=== PATIENT | female | born 1985 | race Caucasian/White ===

== ENCOUNTER 2018-12-02 08:00 | Outpatient (CLI) | payer MEDICAID ==
[2018-12-02 20:19] LABS: BILIRUBIN,URINE NEGATIVE (NEGATIVE); GLUCOSE, URINE (UA) NEGATIVE (NEGATIVE); KETONES,URINE (UA) NEGATIVE (NEGATIVE); LEUKOCYTE ESTERASE, URINE NEGATIVE (NEGATIVE); NITRITE,URINE POSITIVE (NEGATIVE); OCCULT BLOOD,URINE NEGATIVE (NEGATIVE); PROTEIN,URINE NEGATIVE (NEGATIVE); UROBILINOGEN,URINE 1 (NORMAL) E.U./dL (NORMAL)
[2018-12-02 20:24] LABS: CLARITY,URINE CLOUDY (CLEAR)
[2018-12-02 20:25] LABS: BACTERIA,URINE Many /HPF (None Seen); RBC,URINE 0-5 /HPF (0-5); SQUAMOUS EPITHELIAL CELL,UR RARE Squamous (<= Few)
== END 2018-12-02 23:59 ==
LOC: LAB.R 08:00
PROVIDERS: ATTEND Physician Assistant Medical
DX: R82.998 Other abnormal findings in urine (principal)
CPT/HCPCS: 81001; 87086; 87181

== ENCOUNTER 2019-08-31 09:00 | Outpatient (CLI) | payer SELFPAY ==
[2019-08-31 19:05] LABS: CANDIDA GROUP DNA NEGATIVE (NEGATIVE); CANDIDA KRUSEI DNA NEGATIVE (NEGATIVE); TRICHOMONAS VAGINALIS DNA NEGATIVE (NEGATIVE)
== END 2019-08-31 23:59 | disposition home or self-care (01) ==
LOC: LAB.R 09:00
PROVIDERS: ATTEND Nurse Practitioner Obstetrics & Gynecology
DX: N89.8 Other specified noninflammatory disorders of vagina (principal)
CPT/HCPCS: 87077; 87086; 87181; 87661; 87801

== ENCOUNTER 2021-10-21 18:58 | Emergency (ER) | payer MEDICAID ==
[2021-10-21 19:08] VITALS: BP 132/73
[2021-10-21] MEDS ORDERED: AMOXICILLIN 250 MG CAPSULE PO STA (19:13)
--- NOTE | 2021-10-21 19:15 | ED Physician Documentation ---
History of Present Illness - Stated complaint Stated Complaint: LT TOOTH PX - Chief complaint Chief Complaint: Heent - History obtained from History obtained from: Patient - Additonal information Additional information: 35-year-old woman with history of drug abuse and tobacco abuse is about 6 weeks and presents with dental pain that has been going on for about 3 to 4 days. Its been about A couple of years since she has seen her dentist. There is no facial swelling or fevers. A filling there fell out. 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 - Present Medications Home Medications: Ambulatory Orders Medication Instructions Recorded Confirmed Clindamycin [Cleocin] 300 mg PO Q6H 10 Days capsule 07/11/15 Oxycodone HCl/Acetaminophen 1 - 2 tab PO Q4H PRN #15 tablet 07/11/15 [Percocet 5-325 mg Tablet] Amoxicillin 500 mg PO TID #30 cap 10/21/21 - Allergies Allergies/Adverse Reactions: Allergies Allergy/AdvReac Type Severity Reaction Status Date / Time No Known Drug Allergies Allergy Verified 10/21/21 19:06 - Social History Does the pt smoke?: Yes Smoking Status: Current every day smoker Does the pt drink ETOH?: No Does the pt have substance abuse?: No - Immunizations Immunizations are current?: Yes PD ED PE NORMAL - Vitals Vital signs reviewed: Yes - General General: Alert and oriented X 3, No acute distress - HEENT HEENT: Other (She is missing many teeth, the culprit tooth today is a left mandibular canine that is carious to the gumline. No swelling, sublingual edema, or trismus.) - Neck Neck: Supple, no meningeal sign, No bony TTP - Neuro Neuro: Alert and oriented X 3, Normal speech Results - Vitals Vitals: Vital Signs - 24 hr 10/21/21 19:01 Temperature 36.3 C L Heart Rate 99 Respiratory 12 Rate Blood Pressure 132/73 H O2 Saturation 100 PD MEDICAL DECISION MAKING - ED course ED course: She declines prescription pain medication. Advised her that Tylenol was safer than ibuprofen in . Departure - Departure Disposition: 01 Home, Self Care Clinical Impression: Pain due to dental caries Condition: Good Record reviewed to determine appropriate education?: Yes Instructions: ED Tooth Pain Prescriptions: Amoxicillin 500 mg PO TID #30 cap Comments: Prescription sent electronically to [facility] in [place]. Return if you worsen It is very important that you follow-up with a dentist. When it comes to dental problems like yours, the emergency department can only offer a short-term solution to your long-term problem. A couple of low cost options for dental care include: [facility] in [place], calls [phone] for an appointment Or [facility] in [place], call [phone] for an appointment.
== END 2021-10-21 19:22 | disposition home or self-care (01) ==
LOC: ED 18:58
DX: O99.891 Other specified diseases and conditions complicating pregnancy (principal); K02.9 Dental caries, unspecified; O99.331 Smoking (tobacco) complicating pregnancy, first trimester; Z3A.01 Less than 8 weeks gestation of pregnancy
CPT/HCPCS: 99281; 99283; A9270

== ENCOUNTER 2021-12-21 22:51 | Emergency (ER) | payer MEDICAID ==
[2021-12-21 23:20] LABS: BASOPHILS % (AUTO) 0.2 %; EOSINOPHILS # (AUTO) 0.2 10^3/uL (0.0-0.7); EOSINOPHILS % (AUTO) 2.9 %; HCT - HEMATOCRIT 37.3 % (37.0-47.0); HGB - HEMOGLOBIN 12.4 g/dL (12.0-16.0); LYMPHOCYTES # (AUTO) 1.6 10^3/uL (1.5-3.5); LYMPHOCYTES % (AUTO) 27.7 %; MEAN CORPUSCULAR HEMOGLOBIN 28.6 pg (27.0-31.0); MEAN CORPUSCULAR HGB CONC 33.2 g/dL (32.0-36.0); MEAN CORPUSCULAR VOLUME 85.9 fL (81.0-99.0); MEAN PLATELET VOLUME 9.9 fL (7.9-10.8); MONOCYTES # (AUTO) 0.5 10^3/uL (0.0-1.0); MONOCYTES % (AUTO) 8.2 %; NEUTROPHILS # (AUTO) 3.6 10^3/uL (1.5-6.6); NEUTROPHILS % (AUTO) 60.8 %; PLT - PLATELET COUNT 234 10^3/uL (130-450); RED BLOOD COUNT 4.34 10^6/uL (4.20-5.40); RED CELL DISTRIBUTION WIDTH 13.7 % (12.0-15.0); WHITE BLOOD COUNT 5.8 x10^3/uL (4.8-10.8)
[2021-12-21 23:21] LABS: BILIRUBIN,URINE NEGATIVE (NEGATIVE); GLUCOSE, URINE (UA) NEGATIVE (NEGATIVE); KETONES,URINE (UA) NEGATIVE (NEGATIVE); LEUKOCYTE ESTERASE, URINE NEGATIVE (NEGATIVE); NITRITE,URINE NEGATIVE (NEGATIVE); OCCULT BLOOD,URINE MODERATE (NEGATIVE); PH,URINE 6.5 PH (5.0-7.5); PROTEIN,URINE NEGATIVE (NEGATIVE); UROBILINOGEN,URINE 1 (NORMAL) E.U./dL (NORMAL)
[2021-12-21 23:22] LABS: CLARITY,URINE CLEAR (CLEAR)
[2021-12-21 23:23] LABS: HCG UR QUAL POSITIVE
[2021-12-21 23:29] LABS: CALCIUM 8.8 mg/dL (8.5-10.3); CREATININE 0.6 mg/dL (0.4-1.0); POTASSIUM 3.5 mmol/L (3.5-5.0)
[2021-12-21 23:30] LABS: BACTERIA,URINE Few /HPF (None Seen); MUCUS,URINE Moderate Strands; SQUAMOUS EPITHELIAL CELL,UR MANY Squamous (<= Few); WBC,URINE 0-3 /HPF (0-5)
--- NOTE | 2021-12-21 23:33 | ED Physician Documentation ---
PD HPI FEMALE - Stated complaint Stated Complaint: FEMALE - Chief complaint Chief Complaint: Abd Pain - History obtained from History obtained from: Patient - History of Present Illness Timing - onset: Enter time (12:00 (noon)), Today Timing - details: Abrupt onset Pain level max: 0 Pain level max: 0 Associated symptoms: Vaginal bleeding, Vaginal discharge. 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 She went home and lay down and rested for a while, felt ok, but had recurrence of fluid/blood from vagina when standing back up. This gradually improved to the point of no longer having vaginal fluid discharge and minimal vaginal bleeding. She says she had a positive home test 2 weeks ago but she cannot estimate how many weeks she is and cannot recall LMP. Does not know blood type but she recalls having to have Rhogam injections with previous pregnancies. Review of Systems Constitutional: reports: Reviewed and negative Cardiac: reports: Reviewed and negative Respiratory: reports: Reviewed and negative GI: reports: Reviewed and negative : reports: LMP (cannot recall , cannot provide estimate), Vaginal bleeding, Now EGA (unknown EGA; positive home test 2 weeks ago). 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 - Present Medications Home Medications: Ambulatory Orders Medication Instructions Recorded Confirmed No Known Home Medications 12/21/21 12/21/21 - Allergies Allergies/Adverse Reactions: Allergies Allergy/AdvReac Type Severity Reaction Status Date / Time No Known Drug Allergies Allergy Verified 12/21/21 23:02 - Social History Does the pt smoke?: Yes Smoking Status: Current every day smoker Does the pt drink ETOH?: No Does the pt have substance abuse?: No - Immunizations Immunizations are current?: Yes PD ED PE NORMAL - Vitals Vital signs reviewed: Yes - General General: Alert and oriented X 3, No acute distress, Well developed/nourished - Cardiac Cardiac: RRR, No murmur, No gallop, No rub - Respiratory Respiratory: No respiratory distress, Clear bilaterally - Abdomen Abdomen: Normal bowel sounds, Soft, Non tender, Non distended - Back Back: No CVA TTP - Derm Derm: Normal color, Warm and dry Results - Vitals Vitals: Oxygen O2 Source Room air - Labs Labs: Laboratory Tests 12/21/21 12/21/21 12/21/21 23:09 23:09 23:14 WBC 5.8 RBC 4.34 Hgb 12.4 Hct 37.3 MCV 85.9 MCH 28.6 MCHC 33.2 RDW 13.7 Plt Count 234 MPV 9.9 Neut # (Auto) 3.6 Lymph # (Auto) 1.6 [place] # (Auto) 0.5 Eos # (Auto) 0.2 Baso # (Auto) 0.0 Absolute Nucleated RBC 0.00 Nucleated RBC % 0.0 Sodium Potassium Chloride Carbon Dioxide Anion Gap BUN Creatinine Estimated GFR (MDRD) Glucose Calcium HCG, Quant Urine Color YELLOW Urine Clarity CLEAR Urine pH 6.5 Ur Specific [place] 1.025 Urine Protein NEGATIVE Urine Glucose (UA) NEGATIVE Urine Ketones NEGATIVE Urine Occult Blood MODERATE H Urine Nitrite NEGATIVE Urine Bilirubin NEGATIVE Urine Urobilinogen 1 (NORMAL) Ur Leukocyte Esterase NEGATIVE Urine RBC 6-10 H Urine WBC 0-3 Ur Squamous Epith Cells MANY Squamous H Urine Bacteria Few Urine Mucus Moderate Strands Ur Microscopic Review INDICATED Urine Culture Comments NOT INDICATED Urine HCG, Qual POSITIVE Blood Type 12/21/21 12/21/21 12/22/21 23:14 23:14 00:16 WBC RBC Hgb Hct MCV MCH MCHC RDW Plt Count MPV Neut # (Auto) Lymph # (Auto) [place] # (Auto) Eos # (Auto) Baso # (Auto) Absolute Nucleated RBC Nucleated RBC % Sodium 137 Potassium 3.5 Chloride 103 Carbon Dioxide 25 Anion Gap 9.0 BUN 11 Creatinine 0.6 Estimated GFR (MDRD) 112 Glucose 83 Calcium 8.8 HCG, Quant 6019.00 Urine Color Urine Clarity Urine pH Ur Specific [place] Urine Protein Urine Glucose (UA) Urine Ketones Urine Occult Blood Urine Nitrite Urine Bilirubin Urine Urobilinogen Ur Leukocyte Esterase Urine RBC Urine WBC Ur Squamous Epith Cells Urine Bacteria Urine Mucus Ur Microscopic Review Urine Culture Comments Urine HCG, Qual Blood Type O NEGATIVE - Rads (name of study) pelvic/TV US Radiology: Prelim report reviewed, See rad report PD MEDICAL DECISION MAKING - ED course Complexity details: reviewed results, re-evaluated patient, considered differential, d/w patient ED course: US interpreted as 11 week IUG with no heart movement, which is c/w demise. Results d/w patient and need for follow up emphasized. Return precautions discussed. Blood type O negative, given rhogam IM prior to d/c. Departure - Departure Disposition: Home, Self Care Clinical Impression: demise before 20 weeks with retention of fetus Condition: Good Instructions: ED Miscarriage Inevitable Follow-Up: Yolette León MD [Provider Admit Priv/Credential] - (Call Friday to arrange for next available appointment) Comments: The ultrasound is interpreted by the radiologist as "nonviable late first trimester intrauterine . There is a crown-rump length measuring 11 weeks 0 days with no heartbeat". This means that there is a fetus with measurements consistent with 11 weeks of growth but no heartbeat seen; at 11 weeks of growth, a heartbeat should easily be seen, and thus the radiologist's conclusion is that this is a nonviable : you will either have a miscarriage or possibly need a D+C. Follow up with gate technician is very important. Discharge Date/Time: 12/22/21 02:43
--- NOTE | 2021-12-22 01:36 | Ultrasound Report ---
PROCEDURE: OB First Trimester w/TV INDICATIONS: Preg VB, does not know edc OUTSIDE/PRIOR DATING DATA: Last menstrual period (LMP): Unknown. LMP-based estimated date of delivery (GRISELDA): Unknown. First dating scan (date and location): 12/22/2021. Estimated date of delivery (GRISELDA) from first dating scan: 07/13/2022. The below data below was generated using the ultrasound GRISELDA of 07/13/2022 TECHNIQUE: Real-time scanning was performed of the fetus and maternal pelvic organs, with image documentation. Endovaginal scanning was also performed to better visualize the fetus and maternal ovaries. COMPARISON: None FINDINGS: A nonviable early first trimester intrauterine is present with a crown-rump alexi th measuring 11 weeks 0 days and no heartbeat Embryo: [place]-rump length measures 4.2 cm, 11 weeks 0 days Heart rate: None There is a subchorionic hemorrhage measuring 6.8 x 3.3 x 5.5 cm. Measurement variability in dating: +/- 4 weeks by LMP, +/- 7 days by mean sac diameter (use before 6 weeks gestation if crown-rump length not able to be measured), +/- 5 days by crown-rump length (6-12 weeks gestation). Maternal organs: Ovaries: right corpus luteum noted.. IMPRESSION: Nonviable late first trimester intrauterine . There is a crown-rump length measuring 11 week s 0 days with no heartbeat. Reviewed by: Maykel Dunn MD on 12/22/2021 1:34 AM PST Approved by: Maykel Dunn MD on 12/22/2021 1:34 AM PST Station ID: [id number]
[2021-12-22] MEDS ORDERED: RHO(D) IMMUNE GLOBULIN 300 MCG SYRINGE IM STA (02:08)
[2021-12-22 02:43] VITALS: BP 130/98
== END 2021-12-22 02:43 | disposition home or self-care (01) ==
LOC: ED 22:51
DX: O02.1 Missed abortion (principal); Z3A.11 11 weeks gestation of pregnancy; O99.331 Smoking (tobacco) complicating pregnancy, first trimester; F17.200 Nicotine dependence, unspecified, uncomplicated
CPT/HCPCS: 36415; 80048; 81001; 81003; 81025; 84702; 85025; 86900; 86901; 87086; 96372; 99282; 99284

== ENCOUNTER 2024-03-14 15:01 | Emergency (ER) | payer MEDICAID ==
[2024-03-14 15:15] VITALS: BP 141/80; O2SAT 99
--- NOTE | 2024-03-14 15:23 | ED Physician Documentation ---
History of Present Illness - Stated complaint Stated Complaint: SWOLLEN FACE - Chief complaint Chief Complaint: Heent - History obtained from History obtained from: Patient - History of Present Illness Timing: Today Pain level max: 5 Pain level now: 5 - Additonal information Additional information: 38-year-old female presents to the emergency department complaining of right upper dental pain. She states that this started a few days ago but worsened today. Has not seen her dentist yet. Noted facial swelling today as well. No fevers. No chills. No difficulty speaking or swallowing. She does smoke. Denies any other drug use. Has had issues with her teeth in the past. 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 - Present Medications Home Medications: Ambulatory Orders Medication Instructions Recorded Confirmed Penicillin V Potassium 500 mg PO Q6HR #40 tablet 03/14/24 - Allergies Allergies/Adverse Reactions: Allergies Allergy/AdvReac Type Severity Reaction Status Date / Time No Known Drug Allergies Allergy Verified 03/14/24 15:04 - Social History Does the pt smoke?: Yes Smoking Status: Never smoker Does the pt drink ETOH?: No Does the pt have substance abuse?: Yes Substance Use and Type: Other - Immunizations Immunizations are current?: Yes - POLST Patient has POLST: No PD ED PE NORMAL - Vitals Vital signs reviewed: Yes - General General: Alert and oriented X 3, No acute distress - HEENT HEENT: Moist mucous membranes, Other (Mild right-sided facial swelling. Tenderness along the right upper premolars. No drainable abscess. Normal phonation. No trismus.) - Neck Neck: Supple, no meningeal sign - Cardiac Cardiac: RRR - Respiratory Respiratory: No respiratory distress, Clear bilaterally - Derm Derm: Warm and dry - Neuro Neuro: Alert and oriented X 3 - Psych Psych: Normal mood, Normal affect Results - Vitals Vitals: Vital Signs - 24 hr 03/14/24 15:05 Temperature 36.8 C Heart Rate 85 Respiratory 16 Rate Blood Pressure 141/80 H O2 Saturation 99 Oxygen O2 Source Room air PD Medical Decision Making - ED course Complexity details: considered differential, d/w patient ED course: 38-year-old female with dental caries. No drainable abscess. Mild facial swelling. Will place on antibiotics for home and have her follow-up with her dentist. Can utilize Motrin and Tylenol for pain. Normal phonation. No trismus. No evidence of deep space infection. Patient counseled regarding signs and symptoms for which I believe and urgent re-evaluation would be necessary. Patient with good understanding of and agreement to plan and is comfortable going home at this time This document was made in part using voice recognition software. While efforts are made to proofread this document, sound alike and grammatical errors may occur. Departure - Departure Disposition: 01 Home, Self Care Clinical Impression: Dental caries Condition: Good Instructions: ED Tooth Pain Follow-Up: Your, dentist tomorrow [Other] Prescriptions: Penicillin V Potassium 500 mg PO Q6HR #40 tablet Comments: Your prescriptions were sent to [facility] in [place]. Please contact your dentist tomorrow for further care.. Please return if you worsen. Take all antibiotics until gone even if you are feeling better. Forms: PCP List
[2024-03-14] MEDS: PENICILLIN VK 250 MG TABLET PO STA (15:36)
== END 2024-03-14 15:38 | disposition home or self-care (01) ==
LOC: ED 15:01
DX: K02.9 Dental caries, unspecified (principal)
CPT/HCPCS: 99283; A9270

== ENCOUNTER 2024-06-26 23:10 | Emergency (ER) | payer MEDICAID ==
[2024-06-26 23:37] VITALS: O2SAT 99
--- NOTE | 2024-06-26 23:41 | ED Physician Documentation ---
History of Present Illness - Stated complaint Stated Complaint: ABCESS TOOTH - Chief complaint Chief Complaint: Heent - History obtained from History obtained from: Patient - Additonal information Additional information: 38yF p/w R upper tooth pain and swelling X few days. patient is on day 2 of leftover penicillin. denies fever, change in voice quality or trismus. 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 - Present Medications Home Medications: Ambulatory Orders Medication Instructions Recorded Confirmed Penicillin V Potassium 500 mg PO Q6HR #40 tablet 03/14/24 Amox/Clav 875/125 [Augmentin 1 tablet PO Q12H 7 Days #14 tablet 06/26/24 875/125 Tab] Oxycodone HCl/Acetaminophen 1 each PO Q4H PRN #8 tablet 06/26/24 [Percocet 5-325 mg Tablet] - Allergies Allergies/Adverse Reactions: Allergies Allergy/AdvReac Type Severity Reaction Status Date / Time No Known Drug Allergies Allergy Verified 06/26/24 23:26 - Social History Does the pt smoke?: Yes Smoking Status: Current every day smoker Does the pt drink ETOH?: No Does the pt have substance abuse?: Yes - Immunizations Immunizations are current?: Yes - POLST Patient has POLST: No PD ED PE NORMAL - Vitals Vital signs reviewed: Yes - General General: Alert and oriented X 3, No acute distress, Well developed/nourished - HEENT HEENT: Atraumatic, PERRL, EOMI, Moist mucous membranes, Other (poor dentition. multiple cracked teeth. R upper molars ttp. no trismus. no submental hardening or tenderness to palpation) Results - Vitals Vitals: Vital Signs - 24 hr 06/26/24 23:22 Temperature 36.6 C Heart Rate 95 Respiratory 18 Rate Blood Pressure 153/95 H O2 Saturation 99 Oxygen O2 Source Room air PD Medical Decision Making - ED course ED course: 38yF p/w dental infection. plan to provide pain meds, antibiotics and have her f/u with her dentist. return precautions given. Departure - Departure Disposition: 01 Home, Self Care Clinical Impression: Dental abscess Condition: Stable Instructions: ED Abscess Dental Prescriptions: Amox/Clav 875/125 [Augmentin 875/125 Tab] 1 tablet PO Q12H 7 Days #14 tablet Oxycodone HCl/Acetaminophen [Percocet 5-325 mg Tablet] 1 each PO Q4H PRN #8 tablet PRN Reason: Pain >8 Comments: You were seen in the emergency department for dental infection. Antibiotics and pain meds were sent to [facility] in [place]. For percoset: Do not use when driving or operating heavy machinery. Dispose of any unused pills at your local police station. This medication may cause constipation. If you are prone to constipation then please take with [id number] sennadocusate and MiraLAX. Please follow-up with your dentist and return to the emergency department if you have any new or worsening symptoms or other concerns.
[2024-06-26] MEDS: ACETAMINOPHEN 325 MG TABLET PO STA (23:50)
[2024-06-26] MEDS: oxyCODONE 5 MG TABLET PO STA (23:50)
[2024-06-26 23:57] VITALS: BP 150/78
--- NOTE | 2024-06-27 13:39 | ED Physician Documentation ---
ED Addendum - Addendum Addendum: 06/27/24 13:37 The prescription was not electronically sent by the original provider, therefore the prescriptions were resent electronically. Any controlled substances had to be cancelled and reordered in order to be sent electronically. Departure - Departure Disposition: 01 Home, Self Care Clinical Impression: Dental abscess Condition: Stable Instructions: ED Abscess Dental Prescriptions: Amox/Clav 875/125 [Augmentin 875/125 Tab] 1 tablet PO Q12H 7 Days #14 tablet oxyCODONE [Roxicodone] 5 - 10 mg PO Q6H PRN #8 tablet MDD 6 PRN Reason: pain Comments: You were seen in the emergency department for dental infection. Antibiotics and pain meds were sent to [facility] in [place]. For percoset: Do not use when driving or operating heavy machinery. Dispose of any unused pills at your local police station. This medication may cause constipation. If you are prone to constipation then please take with [id number] sennadocusate and MiraLAX. Please follow-up with your dentist and return to the emergency department if you have any new or worsening symptoms or other concerns. Forms: PCP List Discharge Date/Time: 06/26/24 23:53
== END 2024-06-26 23:53 | disposition home or self-care (01) ==
LOC: ED 23:10
DX: K04.7 Periapical abscess without sinus (principal); F17.200 Nicotine dependence, unspecified, uncomplicated
CPT/HCPCS: 99283; A9270